=== PATIENT | male | born 1960 | race Caucasian/White ===

== ENCOUNTER 2019-09-25 21:55 | Emergency (ER) | payer OTHER ==
[~2019-09-25] VITALS: Ht 170.2 cm; Wt 86.2 kg
[~2019-09-25 21:55] MED LIST: ASPIR 8181 MG PO; ATORVASTATIN CA40 MG PO; BRILINTA90 MG PO; LOPRESSOR25 PO; MOTION RELIEF25 MG PO; NITROGLYCERIN0.4 MG SUBLING; PRILOSEC 20 MG20 MG PO; TYLENOL325 MG PO; ZOFRAN ODT4 MG PO
[2019-09-25 23:38] VITALS: BP 154/91
== END 2019-09-25 23:41 | disposition home or self-care (01) ==
LOC: M.ERS 21:55
DX: S61.012A Laceration without foreign body of left thumb without damage to nail, initial encounter (principal); K21.9 Gastro-esophageal reflux disease without esophagitis; I25.2 Old myocardial infarction; W25.XXXA Contact with sharp glass, initial encounter; Y92.89 Other specified places as the place of occurrence of the external cause; Y93.89 Activity, other specified; Y99.8 Other external cause status

== ENCOUNTER 2021-08-31 02:03 | Emergency (ER) | payer OTHER ==
[~2021-08-31] VITALS: Ht 170.2 cm; Wt 81.7 kg
[2021-08-31 03:10] VITALS: BP 148/81
--- NOTE | 2021-08-31 10:58 | EKG ---
[place] [address] ELECTROCARDIOGRAM REPORT Name: CLARISA COSTELLO Room: [facility]#: [id number] Admission: 08/31/21 Attend Phys: Discharge: 08/31/21 Date of : 64 Date of Service: 08/31/21 0245 Report #: [id number] THIS REPORT FOR: //name// [facility] ED Test Date: 2021-08-31 Test Time: 02:45:40 Pat Name: CLARISA COSTELLO Department: Room: Gender: Radio Host: : 1960 Requested By: Norma Shrestha Order Number: [id number] MD: Eugenio Temple Measurements Intervals [place] Rate: 100 P: 23 IN: 185 QRS: -5 QRSD: 85 T: 11 QT: 351 QTc: 453 Interpretive Statements Sinus tachycardia Probable left atrial enlargement Low voltage, precordial leads RSR' in V1 or V2, probably normal variant Consider inferior infarct Compared to ECG 07/12/2017 21:03:01 Low QRS voltage now present Sinus rhythm no longer present Left ventricular hypertrophy no longer present Myocardial infarct finding still present Electronically Signed On 08-31-2021 10:58:31 CRTTS by Eugenio Temple [email or web address] <ELECTRONICALLY SIGNED> By: Eugenio Temple MD, [facility] 08/31/21 1058 Eugenio Temple MD, [facility] /EPI
== END 2021-08-31 03:10 | disposition home or self-care (01) ==
LOC: M.ERS 02:03
DX: F41.0 Panic disorder [episodic paroxysmal anxiety] (principal); K21.9 Gastro-esophageal reflux disease without esophagitis; I25.2 Old myocardial infarction; Z95.5 Presence of coronary angioplasty implant and graft; Z79.899 Other long term (current) drug therapy; Z79.82 Long term (current) use of aspirin